=== PATIENT | female | born 1940 | race Caucasian/White ===

== ENCOUNTER 2016-04-21 05:36 | Inpatient (IN) | payer OTHER, BC ==
[~2016-04-21] VITALS: Ht 167.6 cm; Wt 83.6 kg
[~2016-04-21 05:36] MED LIST: ALEVE220 M2 PO; ARMOUR THYROID120 MG PO; ATORVASTATIN CA10 MG PO; FERROUS SULFAT325 MG PO; FISH OIL 1,0001 EAC7 PO; FORTAMET1000 M1 PO; HYDRALAZINE HCL50 MG PO; JANUVIA100 MG PO; LO-DOSE ASPIRIN81 M2 PO; LOVENOX40 MG/0.4 SC; METOPROLOL TART50 MG PO; MULTIPLE VITAM1 EACH PO; NORVASC10 MG PO; RANITIDINE HCL150 MG PO; SYNTHROID150 MCG PO; TRAMADOL HCL50 MG PO; VALSARTAN-HCTZ1 EAC3 PO; [UNRECOGNIZED DRUG - OTHER] PO
[2016-04-21 06:05] VITALS: BP 144/64
[2016-04-21 06:39] LABS: POINT-OF-CARE METER ID UU14174212
[2016-04-21 11:00] LABS: HEMATOCRIT 38.6 % (36.0-46.0); MCH 28.2 PG (29.0-34.0); MCHC 31.1 G/DL (30.0-36.0); MCV 90.8 FL (83-99); MEAN PLAT.VOLUME 11.3 uM^3 (9.5-12.4); PLATELET COUNT 272 K/uL (156-360); RBC DIS.WIDTH-CV 15.3 % (11.8-14.6); RBC DIS.WIDTH-SD 50.6 % (39-53); RED BLOOD COUNT 4.25 M/uL (3.80-5.20)
[2016-04-21 11:12] LABS: WHITE BLOOD COUNT 13.7 K/uL (4.1-10.2)
[2016-04-21 11:32] VITALS: BP 154/70
[2016-04-21 15:51] VITALS: BP 179/76
[2016-04-21 16:37] LABS: POINT-OF-CARE METER ID UU13113712
[2016-04-21 19:47] VITALS: BP 156/88
[2016-04-21 21:03] VITALS: BP 161/77
[2016-04-21 21:16] LABS: POINT-OF-CARE METER ID UU13113712
[2016-04-22] VITALS (8 sets, daily range): BP systolic 110–170; BP diastolic 54–72
[2016-04-22 05:34] LABS: HEMATOCRIT 35.5 % (36.0-46.0)
[2016-04-22 05:56] LABS: ANION GAP 7 MEQ/L (2-14); CHLORIDE 99 MEQ/L (99-109); GFR ESTIMATE (CALCULATED) > 59 mL/min/; GLUCOSE 199 mg/dL (70-99); POTASSIUM 3.9 MEQ/L (3.7-5.4); SAMPLE HEMOLYSIS CHECK 0; SAMPLE ICTERIC CHECK 0; SAMPLE LIPEMIA CHECK 0; SODIUM 136 MEQ/L (136-147); UREA NITROGEN (BUN) 20 mg/dL (9-23)
[2016-04-22 11:46] LABS: POINT-OF-CARE METER ID UU13113712
[2016-04-22 16:30] LABS: POINT-OF-CARE METER ID UU13113712
[2016-04-22 21:29] LABS: POINT-OF-CARE METER ID UU13113712
[2016-04-23 04:38] VITALS: BP 133/63
[2016-04-23 05:31] LABS: HEMATOCRIT 33.3 % (36.0-46.0); MCV 91.7 FL (83-99)
[2016-04-23 07:50] LABS: POINT-OF-CARE METER ID UU13113712
[2016-04-23 08:17] VITALS: BP 109/57
[2016-04-23 08:52] VITALS: BP 111/53
[2016-04-23] MEDS ORDERED: HYDROCODON-ACE1 EAC7 PO (09:32)
[2016-04-23] MEDS ORDERED: LOVENOX40 MG/0.4 SC (09:32)
[2016-04-23] MEDS ORDERED: SENNA PLUS TAB1 EACH PO (09:32)
[2016-04-23 11:14] LABS: POINT-OF-CARE METER ID UU13113712
[2016-04-23 11:34] VITALS: BP 104/53
== END 2016-04-23 15:01 | DRG 470 ==
LOC: 2SOUTH 05:36 → 3WEST 11:00 → EDSTATUS 15:16 → SDC 15:16 → 2SOUTH 15:18 → 3WEST 04-23 15:01
PROVIDERS: Orthopaedic Surgery
PROC: 0SRC0J9 Replacement of Right Knee Joint with Synthetic Substitute, Cemented, Open Approach (ICD-10-PCS; principal; 2016-04-21)
DX: M17.11 Unilateral primary osteoarthritis, right knee (principal); E66.9 Obesity, unspecified; Z68.28 Body mass index [BMI] 28.0-28.9, adult; R35.0 Frequency of micturition; E78.5 Hyperlipidemia, unspecified; I10 Essential (primary) hypertension; Z87.891 Personal history of nicotine dependence; E03.9 Hypothyroidism, unspecified
CPT/HCPCS: 73560; 80048; 82948; 85014; 85018; 85027; 94799; C1713; J0690; J1170; J1200; J1650; J1815; J2405; J3010; J7050